=== PATIENT | female | born 1955 | race Caucasian/White ===

== ENCOUNTER 2022-03-23 16:33 | Outpatient (REF) | payer MEDICARE, SELFPAY ==
[2022-03-23 16:47] LABS: MANUAL DIFF FLAG NO
[2022-03-23 17:26] LABS: Basophils Percent Auto 0.3 % (0-2); Eosinophils Absolute Auto 0.2 X10*3/uL (0.0-0.4); Eosinophils Percent Auto 1.9 % (0-4); Hematocrit 42.1 % (37.0-47.0); Hemoglobin 13.8 g/dl (12.0-16.0); Imm Gran Abs Auto 0.06 X10*3/uL (0.00-0.03); Imm Gran Pct Auto 0.6 % (0.0-0.4); Lymphocytes Absolute Auto 2.9 X10*3/uL (1.2-4.9); Lymphocytes Percent Auto 26.6 % (20-40); Mean Corpuscular HGB Conc 32.8 g/dl (31.0-35.0); Mean Corpuscular Hemoglobin 31.1 pg (27.0-33.0); Mean Corpuscular Volume 94.8 fL (80.0-98.0); Mean Platelet Volume 10.6 fL (9.4-12.3); Monocytes Absolute Auto 0.8 X10*3/uL (0.1-1.2); Monocytes Percent Auto 7.6 % (2-11); Neutrophils Absolute Auto 6.8 x10*3/uL (2.0-8.3); Platelet Count 249 X10*3/uL (160-400); Red Blood Count 4.44 X10*6/uL (4.20-5.50); Red Cell Distribution Width 13.5 % (11.0-16.0); White Blood Count 10.8 X10*3/uL (4.8-10.8)
[2022-03-23 17:38] LABS: Anion Gap 16 (12-20); Blood Urea Nitrogen 18 mg/dL (9-16); Calcium 9.2 mg/dL (8.4-10.2); Carbon Dioxide 29 mmol/L (22-29); Chloride 98 mmol/L (96-108); Estimated Glomerular Filt Rate > 60; Glucose Random 297 mg/dL (60-115); Potassium 4.2 mmol/L (3.3-5.1); Sodium 139 mmol/L (135-145)
[2022-03-23 18:22] LABS: Phenytoin Dilantin 15.4 ug/mL (10.0-20.0)
== END 2022-03-23 16:34 | disposition home or self-care (01) ==
LOC: HO.LAB 16:33
PROVIDERS: PCP Internal Medicine; Visit Provider Psychiatry & Neurology Neurology
DX: R56.9 Unspecified convulsions (principal); Z79.899 Other long term (current) drug therapy
CPT/HCPCS: 36415; 80048; 80185; 85025

== ENCOUNTER 2023-04-14 12:11 | Outpatient (AMB) | payer MEDICARE, SELFPAY ==
--- NOTE | 2023-04-14 12:34 | A.OFFPC_ITS ---
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 She has a past medical history significant for diabetes type 2, seizure disorder, hypertension, hyperlipidemia, and osteoarthritis of the bilateral knees.. She has not seen a primary care provider in 5 years. She is due for mammogram, bone density scan, colonoscopy, podiatry, and Ophthalmology. She is declining OBGYN exam. Will order the appropriate referrals. At today's appointment the patient was found to be tachycardic at 111 beats per minute, EKG was performed which demonstrated new onset AFib, rapid. The patient denies having any chest pain, shortness of breath, arm pain, dizziness, nausea, epigastric pain, vomiting, or diarrhea. The patient will have cardiac ultrasoun d ordered, in addition to referral to Cardiology. She will be started on beta- orsmery for rate control, and Eliquis as her history of diabetes type 2, hyperlipidemia, age, and sex place her at a 8.5% chance of stroke within 1 year per based on the CHADS 2 score. Patient has also been instructed to take her blood pressure and blood glucose readings at home. She has been educated on the side effects of these medications. She has been educated when to present to the emergency room or when to return to the office. [facility] Family History (Updated 04/14/23 @ 12:45 by Ria Elizondo CMA) Brother Substance use disorder Mental health disorder Social History Housing: House Patient Tobacco Use Status: Never used Tobacco e-Cigarette/Vaping Use: Never Used service: No Current occupational status: retired Cognitive needs: No Hearing needs: No Vision needs: Yes Questionnaire PHQ-9 Over the last 2 weeks, how often have you been bothered by any of the following problems? 88294 - PHQ-9 Billing: Patient declined-do not bill Source: Developed by Drs. Ben Ha, Marilou Zamudio, Peterson Moss and colleagues, with an educational kate from [employer]. AUDIT C Alcohol Use Questionnaire (AUDIT-C) 1. How often do you have a drink containing alcohol?: Monthly or less 2. How many drinks containing alcohol do you have on a typical day when you are drinking?: 1 or 2 3. How often do you have six or more drinks on one occasion?: Never Total Score: 1 Review of Systems Const Details: Constitutional : No Weight loss, No Fever, No Chills, No Fatigue, No Malaise ENT/Mouth : No sore throat, No Rhinorrhea Eyes: No Eye Pain, No Swelling, No Redness Cardiovascular : No Chest Pain, No SOB, No Dyspnea on Exertion, No Orthopnea, No Edema, No Palpitations Respiratory : No Cough, No Sputum, No Wheezing Gastrointestinal : No Nausea, No Vomiting, No Diarrhea, No Constipation, No abdominal Pain, No Hematochezia, No Melena Genitourinary : No Dysuria, No Urinary Frequency, No Hematuria, Musculoskeletal : No joint pain, No Myalgias, No Joint Swelling Skin : No Skin Lesions, No rash Neuro : No Weakness, No Numbness, No Dizziness, No Headache Psych : No Anxiety/Panic, No Depression Heme/Lymph: No Bruising, No Bleeding,No Lymphadenopathy Endocrine : No Polyuria, No Polydipsia All other systems reviewed and are negative All systems reviewed & are unremarkable except as noted in HPI and below Physical exam (Primary Care) Vital Signs: Last Vital Signs Pulse 111 H 04/14/23 12:40 BP 110/80 04/14/23 12:40 Pulse Ox 96 04/14/23 12:40 Oxygen Delivery Method Room Air 04/14/23 12:40 Care Plan Goal for BP management: Patient had in office EKG. Blood pressure stable. BMI result Body Mass Index 55.5 BMI Assessment/Plan discussion: High Tobacco/Smoking Status: Tobacco use Status Tobacco use date assessed 04/14/23 04/14/23 12:36 Patient Tobacco Use Status Never used Tobacco 04/14/23 12:49 e-Cigarette/Vaping Use Never Used 04/14/23 12:49 Const General: cooperative and no acute distress Nutritional Appearance: obese Orientation/consciousness: patient oriented x3 Limitations: no limitations HENMT Head: Yes normal to inspection and Yes normocephalic Ears: TM's normal bilaterally Eyes General: appearance normal, both eyes and all related structures Sclerae: sclerae normal Corneas: corneas normal Pupils: Equal, round and reactive pupils present EOM: EOMs intact bilaterally Direct Ophthalmoscopy: normal light reflex and no photophobia Neck Neck: Yes normal visual inspection, Yes full ROM, Yes no lymphadenopathy and Yes trachea midline Lymphatic: no lymphadenopathy noted Resp Auscultation: clear to auscultation bilaterally Cardio Jugular venous distension: no JVD Rhythm: abnormal rhythm (AFib) GI Inspection: Yes normal to inspection Auscultation: normal bowel sounds General: Yes no CVA tenderness Back/Spine/Pelvis Back: no CVA tenderness Skin General skin exam: no rashes or lesions noted Neuro General: patient oriented x3 and CN's II-XI intact bilaterally Cranial nerves: Yes CN's II-XII intact bilaterally and Yes Equal, round and reactive pupils present Sensory Exam: Abnormal lower extremity sensory exam (Sensate to monofilament) Deep tendon reflexes (DTR's): Right patellar reflex intensity grade: 2+ and Left patellar reflex intensity grade: 2+ Romberg Test: Negative Extrem General: Yes normal to inspection Psych Affect: Sad affect present (Patient spent much of the appointment talking about childhood trauma.) Thought content: suicidality and no homicidality Office Procedures EKG [id number], Complete Results AMB Hemoglobin A1c AMB Hemoglobin A1c 7.3 % Last Edit by Ria Elizondo CMA on 04/14/23 14:38 Results Reviewed Results Reviewed: Laboratory Last Values Hgb A1c (Clinic) 7.3 % (4.0-6.0) H 04/14/23 14:37 Assessment and Plan Assessment & Plan (1) Encounter for routine adult physical exam with abnormal findings: Comment: Will order full panel of labs. Patient has opted for Cologuard. Will refer for bone density and mammogram. Patient is going to follow-up in 1 week. Code(s): Z00.01 - Encounter for general adult medical examination with abnormal findings (2) New onset a-fib: Comment: Patient has new onset AFib with no symptoms. Will order echocardiogram, and refer to Cardiology. Will start patient on metoprolol, and Eliquis. Patient has been educated on these medications and their side effects. Patient has been educated on signs of worsening symptoms and when to return to the office or when to present to the emergency room. Patient is instructed to take blood pressure measurements at home. Patient will have PT INR draw. Patient has been instructed not to take NSAIDs. Code(s): I48.91 - Unspecified atrial fibrillation Plan: Patient will follow-up in 1 week (3) Diabetes mellitus: Comment: Patient will be started on metformin to be taken as directed. Patient will be started on atorvastatin for hyperlipidemia. Patient will get referral to Ophthalmology and Podiatry. Patient's A1c in office today 7.3. Patient has been educated on proper diet, in foods to avoid. Patient instructed to take blood sugar measurements at home. Code(s): E11.9 - Type 2 diabetes mellitus without complications Qualifiers: Diabetes mellitus complication status: without complication Diabetes mellitus [facility] insulin use: without [facility] use Diabetes mellitus type: type 2 Qualified Code(s): E11.9 - Type 2 diabetes mellitus without complic ations Orders: Orders AMB EKG-In Office 04/14/23 R00.0 - Tachycardia, unspecified MM tomosynthesis screening BI 04/14/23 Z00.01 - Encounter for general adult medical examination with abnormal findings CA echo transthoracic complete 04/14/23 Z00.01 - Encounter for general adult medical examination with abnormal findings XR DEXA axial skeleton 04/14/23 Z00.01 - Encounter for general adult medical examination with abnormal findings Microalbumin 24 hr Urine 04/14/23 E11.9 - Type 2 diabetes mellitus without complications, Z00.01 - Encounter for general adult medical examination with abnormal findings Lipid Panel 04/14/23 E11.9 - Type 2 diabetes mellitus without complications, Z00.01 - Encounter for general adult medical examination with abnormal findings TSH reflex Free T4 04/14/23 E11.9 - Type 2 diabetes mellitus without complications, Z00.01 - Encounter for general adult medical examination with abnormal findings UA CC w/rflx Micro + Cult 04/14/23 E11.9 - Type 2 diabetes mellitus without complications, Z00.01 - Encounter for general adult medical examination with abnormal findings Comprehensive Met. Panel 04/14/23 E11.9 - Type 2 diabetes mellitus without complications, Z00.01 - Encounter for general adult medical examination with abnormal findings Complete Blood Count Auto Diff 12 E11.9 - Type 2 diabetes mellitus without complications, Z00.01 - Encounter for general adult medical examination with abnormal findings AMB Hemoglobin A1c 04/14/23 Z13.9 - Encounter for screening, unspecified Vitamin D 25-OH (D2 and D3) 12 E11.9 - Type 2 diabetes mellitus without complications, Z00.01 - Encounter for general adult medical examination with abnormal findings Prothrombin Time INR 04/14/23 E11.9 - Type 2 diabetes mellitus without complications, Z00.01 - Encounter for general adult medical examination with abnormal findings Referrals Cardiology Referral Z00.01 - Encounter for general adult medical examination with abnormal findings Ophthalmology Referral Z00.01 - Encounter for general adult medical examination with abnormal findings Cologuard Test E11.9 - Type 2 diabetes mellitus without complications, Z00.01 - Encounter for general adult medical examination with abnormal findings, Z12.11 - Encounter for screening for malignant neoplasm of colon, Z12.12 - Encounter for screening for malignant neoplasm of rectum Podiatry Referral Z00.01 - Encounter for general adult medical examination with abnormal findings Medications: New atorvastatin 20 mg PO DAILY 30 tabs 0RF metoprolol succinate ER 25 mg PO DAILY 30 tabs 0RF apixaban (Eliquis) 5 mg PO BID 60 tabs 0RF Coding Level of Care Code New Pt Level 4 (99967) Diagnoses Encounter for routine adult physical exam with abnormal findings Z00.01 New onset a-fib I48.91 Type 2 diabetes mellitus without complication, without long-term current use of insulin E11.9 Diabetes mellitus complication status: without complication Diabetes mellitus [facility] 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
[2023-04-14 12:40] VITALS: BP 110/80; PULSE 111; O2SAT 96; BMI 55.5
== END 2023-04-14 17:04 | disposition home or self-care (01) ==
PROVIDERS: PCP Internal Medicine; Visit Provider Nurse Practitioner Primary Care
DX: I48.91 Unspecified atrial fibrillation (principal); E11.9 Type 2 diabetes mellitus without complications; R00.0 Tachycardia, unspecified
CPT/HCPCS: 83036; 93000; 99204

== ENCOUNTER 2023-04-17 16:50 | Outpatient (REF) | payer MEDICARE, SELFPAY ==
[2023-04-17 17:02] LABS: MANUAL DIFF FLAG NO
[2023-04-17 17:31] LABS: INTERNATIONAL NORM RATIO 1.1 (0.9-1.1); Prothrombin Time 13.1 SEC (11.1-13.3)
[2023-04-17 17:38] LABS: Basophils Percent Auto 0.3 % (0-2); Eosinophils Absolute Auto 0.3 X10*3/uL (0.0-0.4); Eosinophils Percent Auto 2.2 % (0-4); Hematocrit 42.8 % (37.0-47.0); Hemoglobin 13.8 g/dl (12.0-16.0); Imm Gran Abs Auto 0.05 X10*3/uL (0.00-0.03); Imm Gran Pct Auto 0.4 % (0.0-0.4); Lymphocytes Absolute Auto 4.7 X10*3/uL (1.2-4.9); Lymphocytes Percent Auto 40.2 % (20-40); Mean Corpuscular HGB Conc 32.2 g/dl (31.0-35.0); Mean Corpuscular Hemoglobin 30.9 pg (27.0-33.0); Mean Platelet Volume 10.8 fL (9.4-12.3); Monocytes Absolute Auto 0.9 X10*3/uL (0.1-1.2); Monocytes Percent Auto 7.8 % (2-11); Neutrophils Absolute Auto 5.8 x10*3/uL (2.0-8.3); Neutrophils Percent Auto 49.1 % (45-73); Platelet Count 244 X10*3/uL (160-400); Red Blood Count 4.46 X10*6/uL (4.20-5.50); Red Cell Distribution Width 12.9 % (11.0-16.0); White Blood Count 11.7 X10*3/uL (4.8-10.8)
[2023-04-17 17:58] LABS: Alanine Aminotransferase 24 U/L (0-31); Albumin Level 4.3 g/dL (3.5-5.0); Alkaline Phosphatase 116 U/L (39-117); Anion Gap 15 (12-20); Aspartate Amino Transferase 16 U/L (5-31); Bilirubin Total 0.3 mg/dL (0.0-1.0); Blood Urea Nitrogen 14 mg/dL (9-16); Calcium 9.1 mg/dL (8.4-10.2); Carbon Dioxide 28 mmol/L (22-29); Chloride 103 mmol/L (96-108); Cholesterol 282 mg/dL (<200); Estimated Glomerular Filt Rate > 60; Glucose Random 165 mg/dL (60-115); HDL Cholesterol 43 mg/dL (>40); LDL Cholesterol Calculated 201 mg/dL (<100); Potassium 3.9 mmol/L (3.3-5.1); Sodium 142 mmol/L (135-145); Total Protein 7.8 g/dL (6.5-8.0); Triglycerides 192 mg/dL (<150)
[2023-04-17 18:07] LABS: TSH reflex Free T4 1.98 uIU/mL (0.32-4.0)
[2023-04-20 14:58] LABS: Vitamin D 25-OH, D2 <4 ng/mL; Vitamin D 25-OH, D3 25 ng/mL; Vitamin D 25-OH, Total 25 ng/mL (30-100)
== END 2023-04-17 16:51 | disposition home or self-care (01) ==
LOC: HO.LAB 16:50
PROVIDERS: PCP Nurse Practitioner Primary Care; Visit Provider Nurse Practitioner Primary Care
DX: Z00.01 Encounter for general adult medical examination with abnormal findings (principal); E11.9 Type 2 diabetes mellitus without complications
CPT/HCPCS: 36415; 80053; 80061; 82306; 84443; 85025; 85610

== ENCOUNTER 2023-04-20 13:28 | Outpatient (AMB) | payer MEDICARE, SELFPAY ==
--- NOTE | 2023-04-20 13:30 | MHC.PC.OV ---
Vital Signs 04/20/23 13:32 Height 5 ft Weight 281 lb BMI 54.9 BP 108/68 Blood Pressure Location Rt brachial Position Sitting Pulse 97 Pulse Source Pulse Oximeter Pulse Oximetry (%) 95 Oxygen Delivery Method Room Air Intake Visit Reasons: F/U Medications Intake Note: Patient here for medication follow up, she states she has been holding off on lisinopril as her bottom number is low and doesn't want it to go too low . Allergies No Known Allergies Allergy (Verified 04/20/23 13:32) Tobacco use date assessed: 04/14/23 HPI HPI Comments History of Present Illness Details Patient is a 67-year-old female in today for a follow-up visit regarding newly started medications. Patient was last seen in the office 6 days prior and was discovered to be in a new onset AFib with rapid ventricular rate. Patient was started on eliquis, metoprolol succinate, and atorvastatin. The patient has been taking her blood pressure readings at home which have been controlled, though she is concerned about a few readings where the diastolic pressure dipped below 60. She states that she has no symptoms of dizziness, chest pain, shortness a breath, nausea, vomiting, diarrhea. [facility] Medical History (Updated 04/20/23 @ 14:45 by SIXTO Lennon) Hypertension Depression Osteoarthritis Hyperlipidemia Diabetes mellitus Family History Brother Mental health disorder Substance use disorder Social History Housing: House Patient Tobacco Use Status: Never used Tobacco e-Cigarette/Vaping Use: Never Used service: No Current occupational status: retired Cognitive needs: No Hearing needs: No Vision needs: Yes Review of Systems Const Details: Constitutional : No Weight loss, No Fever, No Chills, No Fatigue, No Malaise ENT/Mouth : No sore throat, No Rhinorrhea Eyes: No Eye Pain, No Swelling, No Redness Cardiovascular : No Chest Pain, No SOB, No Dyspnea on Exertion, No Orthopnea, No Edema, No Palpitations Respiratory : No Cough, No Sputum, No Wheezing Gastrointestinal : No Nausea, No Vomiting, No Diarrhea, No Constipation, No abdominal Pain, No Hematochezia, No Melena Genitourinary : No Dysuria, No Urinary Frequency, No Hematuria, Musculoskeletal : No joint pain, No Myalgias, No Joint Swelling Skin : No Skin Lesions, No rash Neuro : No Weakness, No Numbness, No Dizziness, No Headache Psych : No SI/HI Heme/Lymph: No Bruising, No Bleeding,No Lymphadenopathy Endocrine : No Polyuria, No Polydipsia All other systems reviewed and are negative Physical exam (Primary Care) Vital Signs: Last Vital Signs Pulse 97 04/20/23 13:32 BP 108/68 04/20/23 13:32 Pulse Ox 95 04/20/23 13:32 Oxygen Delivery Method Room Air 04/20/23 13:32 Care Plan Goal for BP management: Patient's blood pressure reviewed stable. BMI result Body Mass Index 54.9 Tobacco/Smoking Status: Tobacco use Status Tobacco use date assessed 04/14/23 04/20/23 13:31 Patient Tobacco Use Status Never used Tobacco 04/20/23 13:31 e-Cigarette/Vaping Use Never Used 04/20/23 13:31 Const Other: Appearance: Alert.? Oriented X3.? No acute distress.? Head: Normocephalic, atraumatic, no step-offs or deformities Eyes: Pupils equal, round and reactive to light.? Neck: Normal inspection.? Neck supple.? CVS: Normal heart rate. Patient is in afib. Respiratory: No respiratory distress.? Breath sounds normal.? Extremities: No lower extremity edema.? No calf ttp. 5/5 strength to bilateral upper and lower extremities Neuro: Oriented X 3.? No motor deficit.? No sensory deficit. CN 2-12 intact General: cooperative and no acute distress Neuro General: deep tendon reflexes 2+ bilaterally Cranial nerves: Yes CN's II-XII intact bilaterally Cognition (Neuro): normal cognition Psych Thought content: Normal thought content present Insight: Good insight present (Psych) Judgement: Good judgement present (Psych) Office Procedures EKG [id number], Complete Results Reviewed Results Reviewed: Sodium 142 135-145 mmol/L Potassium 3.9 3.3-5.1 mmol/L CL 103 96-108 mmol/L CO2 28 22-29 mmol/L Gap 15 12-20 BUN 14 9-16 mg/dL Creat 0.84 0.5-1.4 mg/dL EGFR > 60 NOTE: For -Citizen Of [place] individuals, multiply the result by 1.210. Chronic Kidney Disease: Estimated GFR < 60 mL/min/1.73m2 Severe Kidney Disease: Estimated GFR < 15 mL/min/1.73m2 Glucose, Random 165 H 60-115 mg/dL CA 9.1 8.4-10.2 mg/dL Total Bili 0.3 0.0-1.0 mg/dL AST (GOT) 16 5-31 U/L ALT (GPT) 24 0-31 U/L Protein, Total 7.8 6.5-8.0 g/dL Alb 4.3 3.5-5.0 g/dL Triglyceride 192 H <150 mg/dL Desirable Triglyceride: less than 150 mg/dL Borderline High Triglyceride 150-199 mg/dL High Triglyceride: 200-499 mg/dL Very High Triglyceride: greater than or equal to 5OO mg/dL Cholesterol 282 H <200 mg/dL Desirable Cholesterol: less than 200 mg/dL Borderline High Cholesterol: 200-239 mg/dL High Cholesterol: greater than 239 mg/dL LDL Calculated 201 H <100 mg/dL Desirable LDL: less than 100 mg/dL Near Optimal/Above Optimal LDL: 110-129 mg/dL Borderline High LDL: 130-159 mg/dL High LDL: 160-189 mg/dL Very High LDL: greater than or equal to 190 mg/dL HDL 43 >40 mg/dL Desirable HDL: greater than 40 mg/dL Note: This HDL assay may give artificially low results in patients with liver disease. Alk Phos 116 39-117 U/L TSH 1.98 0.32-4.0 uIU/mL Assessment and Plan Assessment & Plan (1) Medication care plan discussed with primary care provider: Comment: The patient should continue to take the medication as prescribed. The in office EKG demonstrated that the patient is still in AFib however the rate is 89 beats per minute which is improved from 118 beats per minute. Patient has been instructed that she should start taking her metformin as prescribed. She has been educated to make her appointment with Cardiology and echocardiogram as soon as possible. She has been educated on signs of worsening symptoms and when to present back to the office or when to present to the ER. She will also continue to take blood pressure and blood sugar readings at home. Patient is agreeable to this plan. Code(s): Z71.89 - Other specified counseling Plan Will follow up in 3 months. Orders: Orders AMB EKG-In Office 04/20/23 I48.91 - Unspecified atrial fibrillation Coding Level of Care Code Est Pt Level 3 (01176) Diagnoses Medication care plan discussed with primary care provider Z71.89 CPT Codes EKG - CPT: 83845-[id number], Complete ([id number]) Time Spent (min) 30
[2023-04-20 13:32] VITALS: BP 108/68; PULSE 97; O2SAT 95; BMI 54.9
== END 2023-04-20 15:33 | disposition home or self-care (01) ==
PROVIDERS: PCP Internal Medicine; Visit Provider Nurse Practitioner Primary Care
DX: I48.91 Unspecified atrial fibrillation (principal)
CPT/HCPCS: 93000; 99213

== ENCOUNTER → 2023-06-12 14:26 | Outpatient (REF) | payer MEDICARE, SELFPAY ==
--- NOTE | 2023-06-12 14:33 | CA_ITS ---
Transthoracic Echocardiogram Patient (Last, First, Middle): Liset Chowdhury, Gender: Female Date of : 1955 Age: 67 Procedure Date: 06/12/2023 Procedure Type: Transthoracic Echocardiogram Location: OP Height: 152.4 cm Weight: 127.46 kg BSA: 2.16 m2 Heart Rate: bpm BP: 110 / 70 mmHg Sexologist: LUIS F Referring MD: Emanuel HENSON Symptoms: Z00.01 - Encounter for general adult medical examination with abnormal f... Study Quality: Fair, contrast ECG Rhythm: Sinus Conclusions: - The left ventricular systolic function is normal. The calculated ejection fraction is 56% by biplane method. - Even with contrast, difficult to assess wall motion. Possible distal anteroseptal akinesis. - There is mild to moderate aortic valve stenosis. - There is mild dilatation of the ascending aorta measuring 4.00 cm. Findings Procedure Information Contrast agent, definity, is being given per protocol without apparent complications. Left Ventricle Normal left ventricular cavity size. There is mildly increased left ventricular wall thickness. The left ventricular systolic function is normal. The calculated ejection fraction is 56% by biplane method. Diastolic function is indeterminate on the basis of available data. Even with contrast, difficult to assess wall motion. Possible distal anteroseptal akinesis. Right Ventricle Normal right ventricular cavity size. There is mildly decreased right ventricular systolic function. Atria The left atrium is moderately dilated. The right atrium is normal in size. Aortic Valve There is moderate calcification of the aortic valve. There is mild to moderate aortic valve stenosis. The peak aortic velocity is 1.90 m/s with a calculated peak gradient of 14 mmHg. The mean gradient is 9 mmHg. The aortic valve area is 1.20 cm2. Mitral Valve The mitral valve appears normal. There is trace mitral valve regurgitation. There is no mitral valve stenosis. Pulmonic Valve The pulmonic valve is likely normal. Tricuspid Valve There is trace tricuspid valve regurgitation. Tricuspid regurgitation envelope is inadequate for calculation of right ventricular systolic pressure. Great Vessels There is mild dilatation of the ascending aorta measuring 4.00 cm. Venous The inferior vena cava is mildly dilated and collapses greater than 50% with inspiration. Pericardium/Pleural There is no evidence of pericardial effusion. Prior Study Comparison No prior study available for comparison. Measurements 2D Linear Measurements IVSd: 1.36 0.6-0.9/0.6-1.0 cm LVIDd: 4.86 3.9-5.3/4.2-5.9 cm LVIDd Index: 2.25 2.4-3.2/2.2-3.1 cm/m2 LVIDs: 2.73 2.0-3.6 cm LVPWd: 1.17 0.7-1.1 cm LA Diam: 4.30 2.7-3.8/3.0-4.0 cm LAIDs Index: 1.99 1.5-2.3 cm/m2 LV Mass: 300.34 67-162/88-224 g LV Mass Index: 139.05 43-95/49-115 g/m2 LVOT Diam: 1.90 3.0+(-)1.3 cm 2D Systolic Function EF 4C: 56.40 >55% EF 2C: 53.00 >55% EF BiP: 56.20 >55% Mitral Valve MV Pk E: 0.86 MV Decel Time: 150.00 E'Lateral: 11.30 E'Medial: 5.27 E/E' Med: 16.30 E/E' Lat: 7.60 PHT: 44.00 MVA PHT: 5.00 Decel Giles: 5.85 Aortic Valve AoV Pk Levar: 1.90 AoV Mn Levar: 1.42 AoV VTI: 0.41 AoV Pk Grad: 14.00 Aov Mn Grad: 9.00 BALAJI Cont.VTI: 1.20 LVOT LVOT Pk Levar: 0.74 LVOT Mn Levar: 0.56 LVOT VTI: 0.18 LVOT Pk Grad: 2.00 LVOT Mn Grad: 1.00 LVOT Diam: 1.90 LVOT Area: 2.84 Diastolic Function MV Pk E: 0.86 E'Medial: 5.27 E/E' Med: 16.30 E' Laterial: 11.30 E/E' Lat: 7.60 Right Ventricle TAPSE (mm): 16.30 TVS' Levar: 8.40 Tricuspid Valve RA Press: 8.00 Great Vessels Aorta Sinus of Valsalva: 2.78 2.0-3.5 cm Ao Asc: 4.00 2.1-3.4 cm Updated in Other Vendor System with Status of Final Wander Blanchard MD electronically signed on 06/13/2023 8:16:49 AM with status of Final
== END ==
LOC: HO.CARD 14:26
PROVIDERS: PCP Nurse Practitioner Primary Care; Visit Provider Nurse Practitioner Primary Care
DX: I48.91 Unspecified atrial fibrillation (principal)
CPT/HCPCS: 93306; Q9957

== ENCOUNTER → 2023-06-12 14:33 | Outpatient (BNV) | payer MEDICARE, SELFPAY | PROVIDERS: PCP Nurse Practitioner Primary Care; Visit Provider Internal Medicine | DX: I35.0 Nonrheumatic aortic (valve) stenosis (principal) | CPT/HCPCS: 93306 ==

== ENCOUNTER 2023-07-21 14:53 | Outpatient (AMB) | payer MEDICARE, SELFPAY ==
[2023-07-21 14:59] VITALS: BP 132/70; PULSE 88; O2SAT 98; BMI 54.8
--- NOTE | 2023-07-21 14:59 | A.OFFPC_ITS ---
Vital Signs 07/21/23 14:59 Height 5 ft Weight 280 lb 6 oz BMI 54.8 BP 132/70 Blood Pressure Location Rt brachial Position Sitting Pulse 88 Pulse Source Pulse Oximeter Pulse Oximetry (%) 98 Oxygen Delivery Method Room Air Intake Visit Reasons: 3 month fu Intake Note: pt is here to follow up for her DM Allergies No Known Allergies Allergy (Verified 07/21/23 15:18) Medication List - Last Reconciled 07/21/23 by SIXTO Lennon apixaban (Eliquis) 5 mg PO BID atorvastatin 20 mg PO DAILY furosemide (Lasix) 20 mg PO DAILY lisinopril 10 mg PO DAILY metformin 500 mg PO DAILY metoprolol succinate ER 25 mg PO DAILY phenobarbital 64.8 mg PO BID PRN phenytoin sodium extended (Dilantin Kapseal) 100 mg PO BID psyllium husk (Metamucil) 1 tbsp PO DAILY zolpidem PO PRN Tobacco use date assessed: 07/21/23 Fall risk assessment: No Falls in past year Last assessed Fall Risk: 07/21/23 Dental Screening Dental Screen Date: 07/21/23 Did you have a dental visit in the last 12 months?: No Did you have a dental problem in the last 6 months where you did not have access to dental care?: No Was dental information given to patient?: No HPI HPI Comments History of Present Illness Details Patient is a 67-year-old female here for a diabetic follow-up. She has a past medical history significant for AFib, hypertension, hyperlipidemia, PTSD, epilepsy. Patient's up-to-date with eye exam. Patient has referral for podiatry needs to make appointment. Last A1c in office was 7.3, 2 day her in office A1c is 6.7. Patient will continue on current diabetic regimen with metformin improved diet. [facility] Medical History (Updated 07/21/23 @ 16:27 by SIXTO Lennon) Epilepsy Hypertension Depression Osteoarthritis Hyperlipidemia Diabetes mellitus Family History Brother Mental health disorder Substance use disorder Social History Housing: House Patient Tobacco Use Status: Never used Tobacco e-Cigarette/Vaping Use: Never Used service: No Current occupational status: retired Cognitive needs: No Hearing needs: No Vision needs: Yes Questionnaire PHQ-9 Over the last 2 weeks, how often have you been bothered by any of the following problems? 1. Little interest or pleasure in doing things: more than half the days 2. Feeling down, depressed, or hopeless: nearly every day 3. Trouble falling or staying asleep, or sleeping too much: more than half the days 4. Feeling tired or having little energy: more than half the days 5. Poor appetite or overeating: several days 6. Feeling bad about yourself - or that you are a failure or have let yourself or your family down: more than half the days 7. Trouble concentrating on things, such as reading the newspaper or watching television: not at all 8. Moving or speaking so slowly that other people could have noticed. Or the opposite - being so fidgety or restless that you have been moving around a lot more than usual: not at all 9. Thoughts that you would be better off or of hurting yourself in some way: not at all Total score: 12 Depression Screening Interpretation: Positive Depression Screening Done: Yes 52743 - PHQ-9 Billing: Yes (Patient has appointment upcoming with therapist.) Source: Developed by Drs. Ben Ha, Marilou Zamudio, Peterson Moss and colleagues, with an educational kate from [employer]. Thrive Questionnaire Date Thrive assessed: 07/21/23 I am a: Patient What is your living situation today?: I have a steady place to live Within the past 12 months, did the food you bought not last and you didn't have the money to get more?: Never true Within the past 12 months, did you worry whether your food would run out before you got money to buy more?: Never true Do you have trouble paying for medicines?: No Do you have trouble getting transportation to medical appointments?: No Do you have trouble paying your heating and electricity bill?: No Do you have trouble taking care of your child, family member or friend?: No Do you have trouble with day-to-day activities such as bathing, preparing meals, shopping, managing finances, etc.?: No Are you currently unemployed and looking for a job?: No Are you interested in more education?: Yes THRIVE Score: 0 AUDIT C Alcohol Use Questionnaire (AUDIT-C) 1. How often do you have a drink containing alcohol?: Monthly or less 2. How many drinks containing alcohol do you have on a typical day when you are drinking?: 1 or 2 3. How often do you have six or more drinks on one occasion?: Never Total Score: 1 BELEN-7 AMB Questionnaire BELEN-7 Date BELEN - 7 assessed: 07/21/23 Feeling nervous, anxious, or on edge: 2 = More than half the days Not being able to stop or control worryin = Nearly every day Worrying too much about different things: 2 = More than half the days Trouble relaxin = More than half the days Being so restless that it is hard to sit still: 0 = Not at all Becoming easily annoyed or irritable: 1 = Several days Feeling afraid as if something awful might happen: 2 = More than half the days Total BELEN-7 score (0-4 normal; 5-9 mild; 10-14 moderate; 15-21 severe): 12 Source: Developed by Drs. Ben Ha, Marilou Zamudio, Peterson Moss and colleagues, with an educational kate from [employer]. BELEN-7 Assessment Billing BELEN-7 Assessment Tool: BELEN-7 Assessment 59773 Review of Systems Const Details: Constitutional : No Weight loss, No Fever, No Chills, No Fatigue, No Malaise Eyes: No Eye Pain, No Swelling, No Redness, No vision change. Cardiovascular : No Chest Pain, No SOB, No Dyspnea on Exertion, No Orthopnea, No Edema, No Palpitations Respiratory : No Cough, No Sputum, No Wheezing Gastrointestinal : No Nausea, No Vomiting, No Diarrhea, No Constipation, No abdominal Pain, No Hematochezia, No Melena Genitourinary : No Dysuria, No Urinary Frequency, No Hematuria, Musculoskeletal : Admits bilateraly hand pain, metacarpel joints. Skin : No Skin Lesions, No rash Neuro : No Weakness, No Numbness, No Dizziness, No Headache Psych : No Anxiety/Panic, Admits some Depression, Denies SI/HI. Heme/Lymph: No Bruising, No Bleeding,No Lymphadenopathy Endocrine : No Polyuria, No Polydipsia All other systems reviewed and are negative Physical exam (Primary Care) Vital Signs: Last Vital Signs Pulse 88 07/21/23 14:59 BP 132/70 07/21/23 14:59 Pulse Ox 98 07/21/23 14:59 Oxygen Delivery Method Room Air 07/21/23 14:59 Care Plan Goal for BP management: Vital signs reviewed stable. BMI result Body Mass Index 54.8 Tobacco/Smoking Status: Tobacco use Status Tobacco use date assessed 07/21/23 07/21/23 15:06 Patient Tobacco Use Status Never used Tobacco 07/21/23 14:59 e-Cigarette/Vaping Use Never Used 07/21/23 14:59 PHQ-9: PHQ-9 Score PHQ-9: Total score 12 07/21/23 16:32 Depression Screening Interpretation: Positive Thrive Assessment: Date of Thrive Assessment Date Thrive assessed 07/21/23 07/21/23 16:32 Const Other: Appearance: Alert.? Oriented X3.? No acute distress.? Head: Normocephalic, atraumatic. Eyes: Pupils equal, round and reactive to light.? Neck: Normal inspection.? Neck supple.? CVS: Normal heart rate, + AFIB.? Pulses normal.? Respiratory: No respiratory distress.? Breath sounds normal.? Skin: Skin warm and dry.? Normal skin color.? Normal skin turgor.? Extremities: No lower extremity edema. Tenderness to Metacarpels bilateral hands. Neuro: Oriented X 3.? No motor deficit.? No sensory deficit. CN 2-12 intact Results AMB Hemoglobin A1c AMB Hemoglobin A1c 6.7 % Last Edit by Keyla Swan CMA on 07/21/23 15: 18 Results Reviewed Results Reviewed: Laboratory Last Values Hgb A1c (Clinic) 6.7 % (4.0-6.0) H 07/21/23 15:14 Assessment and Plan Assessment & Plan (1) Diabetes mellitus: Comment: Patient's A1c is 6.7 down from 7.3. She will continue on her current medication regimen. Will continue to eat modify diet. Code(s): E11.9 - Type 2 diabetes mellitus without complications Qualifiers: Diabetes mellitus type: type 2 Diabetes mellitus technician terminal and repeater insulin use: without technician terminal and repeater use Diabetes mellitus complication status: without complication Qualified Code(s): E11.9 - Type 2 diabetes mellitus without complications Plan: Patient will follow-up in 3 months. (2) Depression: Comment: Patient will speak with community navigator for psychiatric care. Patient denies SI/HI. Patient will also start taking vitamin D3 supplements. Code(s): F32.A - Depression, unspecified Qualifiers: Depression Type: unspecified Qualified Code(s): F32.A - Depression, unspecified Plan: Establish care with psychiatrist. (3) Osteoarthritis: Comment: Patient explained that she needs to avoid NSAID use due to Eliquis. Patient can utilize Tylenol for arthritis pain. Can also utilize lidocaine cream. Code(s): M19.90 - Unspecified osteoarthritis, unspecified site Qualifiers: Osteoarthritis location: hand Osteoarthritis type: primary Laterality: bilateral Qualified Code(s): M19.041 - Primary osteoarthritis, right hand; M19.042 - Primary osteoarthritis, left hand Orders: Orders AMB Hemoglobin A1c Today E11.9 - Type 2 diabetes mellitus without complications Lipid Panel Today E11.9 - Type 2 diabetes mellitus without complications Coding Level of Care Code Est Pt Level 4 (00609) Diagnoses Type 2 diabetes mellitus without complication, without long-term current use of insulin E11.9 Diabetes mellitus type: type 2 Diabetes mellitus fci insulin use: without technician terminal and repeater use Diabetes mellitus complication status: without complication Depression, unspecified depression type F32.A Depression Type: unspecified Primary osteoarthritis of both hands M19.041; M19.042 Osteoarthritis location: hand Osteoarthritis type: primary Laterality: bilateral Additional Codes BELEN-7 Assessment Billing - BELEN-7 Assessment Tool: BELEN-7 Assessment 84782 ([id number]) Time Spent (min) 45
== END 2023-07-21 16:09 | disposition home or self-care (01) ==
PROVIDERS: PCP Nurse Practitioner Primary Care; Visit Provider Nurse Practitioner Primary Care
DX: E11.9 Type 2 diabetes mellitus without complications (principal)
CPT/HCPCS: 83036; 96127; 99214

== ENCOUNTER 2023-08-30 13:27 | Outpatient (AMB) | payer MEDICARE, SELFPAY ==
--- NOTE | 2023-08-30 13:51 | MHC.OFFVIS ---
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 findings Intake Note: New patient dx afib with ekg Advertising Teacher Required: No Allergies No Known Allergies Allergy (Verified 07/21/23 15:18) Medication List - Last Reconciled 08/30/23 by Wander Blanchard MD apixaban (Eliquis) 5 mg PO BID atorvastatin 20 mg PO DAILY furosemide (Lasix) 20 mg PO DAILY lisinopril 5 mg PO DAILY metformin 500 mg PO DAILY metoprolol succinate ER 25 mg PO DAILY phenobarbital 64.8 mg PO BID phenytoin sodium extended (Dilantin Kapseal) 100 mg PO BID psyllium husk (Metamucil) 1 tbsp PO DAILY zolpidem PO PRN HPI Comments Details: Liset is here for evaluation of atrial fibrillation. She states that she suffers from depression and has not been on meds for quite some time. She is very upset and is crying in the clinic. Denies any clear-cut symptoms like angina or shortness of breath. Few months back, it seems that she was diagnosed with atrial fibrillation. Has been put on beta-blockers. Also on Eliquis. No clear symptoms from this and only rare palpitations. She is morbidly obese. Denies any history of obstructive sleep apnea. [facility] Medical History (Updated 08/30/23 @ 14:29 by Wander Blanchard MD) Epilepsy Hypertension Depression Osteoarthritis Hyperlipidemia Diabetes mellitus Family History Brother Mental health disorder Substance use disorder Social History Housing: House Patient Tobacco Use Status: Never used Tobacco e-Cigarette/Vaping Use: Never Used service: No Current occupational status: retired Cognitive needs: No Hearing needs: No Vision needs: Yes Review of Systems Const Denies chills, Denies daytime sleepiness, Denies fatigue, Denies fever(s), Denies frequent falls, Denies poor appetite, Denies snoring, Denies stops breathing during sleep, Denies weakness, Denies weight gain and Denies weight loss Eyes Denies loss of vision ENT Denies dizziness and Denies hearing loss Card Denies chest pain, Denies claudication, Denies leg edema, Denies lightheadedness, Denies palpitations, Denies dyspnea, Denies dyspnea on exertion and Denies orthopnea Resp Denies cough, Denies excessive phlegm production, Denies dyspnea, Denies dyspnea on exertion, Denies snoring and Denies wheezing GI Denies abdominal pain, Denies hematochezia, Denies change in bowel habits, Denies nausea and Denies vomiting Denies urinary frequency and Denies dysuria Musc Denies arthralgias, Denies muscle weakness, Denies numbness and Denies other (frequent falls) Skin/Breast Denies nail changes and Denies rash Neuro Denies Abnormal speech present, Denies dizziness, Denies frequent falls, Denies loss of vision, Denies memory loss, Denies numbness and Denies weakness Psych Denies depression and Denies memory loss Endo Denies fatigue and Denies palpitations Sachin/Lymph Reports easy bruising and Reports other (anemia) Aller/Immun Denies wheezing Physical Exam Vital Signs: Last Vital Signs Pulse 152 H 08/30/23 13:52 BP 120/78 08/30/23 13:52 Const General: comfortable and no acute distress Orientation/consciousness: patient oriented x3 HEENT Other: Unremarkable Head: Yes normal to inspection Neck Neck: Yes normal visual inspection Chest Chest palpation & inspection: normal inspection of the chest Resp Auscultation: clear to auscultation bilaterally Cardio Palpation: normal PMI Heart sounds: S1 normal heart sound present, S2 normal heart sound present, no gallops, no murmurs and no rubs GI Palpation (GI): Soft to palpation Back/Spine/Pelvis Other: unremarkable Skin General skin exam: no rashes or lesions noted Neuro General: patient oriented x3 Speech: No Abnormal speech present Extrem General: Yes normal to inspection Psych Mental Status: mental status grossly normal Office Procedures EKG Details: EKG with atrial fibrillation or possibly flutter with a ventricular rate of 152/Min. [id number], Complete Assessment & Plan Assessment & Plan (1) Atrial fibrillation with rapid ventricular response: Code(s): I48.91 - Unspecified atrial fibrillation Category: Medical Plan: EKG as above with atrial fibrillation and rapid ventricular rate. We discussed about going to the ER but she is quite reluctant. She feels that she is very upset and is tearful and that is what is driving the heart rate up. She states that several heart rates in other office visits have been well within normal range. I am not clear if sending her to the ER when she is tearful and emotionally upset will make things worse rather. Hence we will try to go up on the beta-rosmery dosing. Increase metoprolol ER to 50 mg daily. Advised her to go home and rest and take an extra metoprolol 25 mg tablet. Stop the lisinopril to avoid any hypotension. Continue Eliquis. 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 If persistently high in spite of increasing beta-blockers, may need to go to the ER. Obtain Holter. After the rate is stabilized, we can get an echocardiogram. Possibly home sleep study as well based on body habitus but not clear if she will be able to pursue due to psychiatric issues. Orders: Orders CA echo transthoracic complete Today I48.91 - Unspecified atrial fibrillation ECG 3 day holter monitor Today I48.91 - Unspecified atrial fibrillation, R00.2 - Palpitations Medications: New metoprolol succinate ER (Toprol XL) 50 mg PO DAILY 90 tabs 1RF Discontinued metoprolol succinate ER Discontinued Reason: Doctor's Order 25 mg PO DAILY 90 tabs 1RF Coding Level of Care Code New Pt Level 4 (18200) Diagnoses Atrial fibrillation with rapid ventricular response I48.91 CPT Codes EKG - CPT: 96957-[id number], Complete ([id number])
[2023-08-30 13:52] VITALS: BP 120/78; PULSE 152
== END 2023-08-30 14:44 | disposition home or self-care (01) ==
PROVIDERS: PCP Nurse Practitioner Primary Care; Visit Provider Internal Medicine
DX: I48.91 Unspecified atrial fibrillation (principal)
CPT/HCPCS: 93010; 99214

== ENCOUNTER → 2023-08-30 13:27 | Outpatient (BNVA) | payer MEDICARE, SELFPAY | PROVIDERS: PCP Nurse Practitioner Primary Care; Visit Provider Internal Medicine | DX: I48.91 Unspecified atrial fibrillation (principal); E66.01 Morbid (severe) obesity due to excess calories; R00.2 Palpitations | CPT/HCPCS: 93005; 99212 ==

== ENCOUNTER → 2023-08-31 13:01 | Outpatient (REF) | payer MEDICARE, SELFPAY ==
--- NOTE | 2023-08-31 13:19 | HM_ITS ---
Conclusion: 1. Patient was monitored for total period of 3 days 2. Baseline was atrial fibrillation with average heart of 93 beats per minute with borderline rate control 3. No significant pauses noted 4. No patient reported events MTDD
== END ==
LOC: HO.CARD 13:01
PROVIDERS: Visit Provider Internal Medicine
DX: R00.2 Palpitations (principal); I48.91 Unspecified atrial fibrillation
CPT/HCPCS: 93242

== ENCOUNTER → 2023-08-31 13:19 | Outpatient (BNV) | payer MEDICARE, SELFPAY | PROVIDERS: Visit Provider Internal Medicine Cardiovascular Disease | DX: I48.91 Unspecified atrial fibrillation (principal) | CPT/HCPCS: 93244 ==

== ENCOUNTER 2023-09-07 13:27 | Outpatient (AMB) | payer MEDICARE, SELFPAY ==
[2023-09-07 13:28] VITALS: BP 112/62; PULSE 107; O2SAT 95
--- NOTE | 2023-09-07 13:28 | A.OFFVIS_ITS ---
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 Recently seen regarding atrial fibrillation. She also has depression and apparently has not been on meds for some time. Last time, she was very upset and constantly crying. Today, she has a bit more composed but still not normal. She seems like she is on the verge of breaking down again. From the cardiac, no specific symptoms. She has been put on beta- blockers. Tolerating that well. Morbidly obese. She denies any history of obstructive sleep apnea. [facility] Medical History (Updated 08/30/23 @ 14:29 by Wander Blanchard MD) Epilepsy Hypertension Depression Osteoarthritis Hyperlipidemia Diabetes mellitus Family History Brother Mental health disorder Substance use disorder Social History Housing: House Patient Tobacco Use Status: Never used Tobacco e-Cigarette/Vaping Use: Never Used service: No Current occupational status: retired Cognitive needs: No Hearing needs: No Vision needs: Yes Review of Systems Const Denies chills, Denies fatigue, Denies fever(s), Denies frequent falls, Denies weakness, Denies weight gain and Denies weight loss ENT Denies dizziness Card Denies chest pain, Denies leg edema, Denies lightheadedness, Denies palpitations, Denies dyspnea and Denies dyspnea on exertion Resp Denies cough, Denies dyspnea and Denies dyspnea on exertion GI Denies hematochezia Musc Denies abnormal gait, Denies muscle weakness, Denies numbness, Denies radiating pain into limb and Denies tingling Neuro Denies abnormal gait, Denies dizziness, Denies frequent falls, Denies numbness, Denies tingling and Denies weakness Endo Denies fatigue and Denies palpitations Physical Exam Vital Signs: Last Vital Signs Pulse 107 H 09/07/23 13:28 BP 112/62 09/07/23 13:28 Pulse Ox 95 09/07/23 13:28 Const General: comfortable and no acute distress Orientation/consciousness: patient oriented x3 HEENT Other: Unremarkable Head: Yes normal to inspection Neck Neck: Yes normal visual inspection Chest Chest palpation & inspection: normal inspection of the chest Resp Auscultation: clear to auscultation bilaterally Cardio Palpation: normal PMI Heart sounds: S1 normal heart sound present, S2 normal heart sound present, no gallops, no murmurs and no rubs GI Palpation (GI): Soft to palpation Back/Spine/Pelvis Other: unremarkable Skin General skin exam: no rashes or lesions noted Neuro General: patient oriented x3 Extrem General: Yes normal to inspection Psych Mental Status: mental status grossly normal Assessment & Plan Assessment & Plan (1) Atrial fibrillation with rapid ventricular response: Code(s): I48.91 - Unspecified atrial fibrillation Category: Medical Plan: EKG in the recent visit with atrial fibrillation and rapid rate. In the Holter monitor, underlying rhythm is atrial fibrillation with average rate of 93/Min with borderline rate control. Findings discussed with patient. She is already on Toprol-XL 50 mg daily. Add digoxin 125 mcg daily. Continue anticoagulation. Considering her psychiatric issues, she has not really a good candidate for cardioversion or rhythm control. I am not clear if she will be able to go through it at all. She is already tearful even just in the clinic. She may have sleep apnea but she is denying any history. Also even if she has the problem, unlikely that she will be able to do CPAP. Recent echocardiogram with LVEF of 56%. Question of distal anteroseptal akinesis. [id number] aortic stenosis. Mild ascending aortic dilatation. Eventually, it ischemic workup with a stress test if she is able to go through. Currently, no angina. Follow-up in a few weeks' time. Tried to reassure her as much. Total time spent including review of data, counseling, documentation, coordination of care-32 minutes. Coding Level of Care Code Est Pt Level 4 (78916) Diagnoses Atrial fibrillation with rapid ventricular response I48.91
== END 2023-09-07 14:01 | disposition home or self-care (01) ==
PROVIDERS: PCP Nurse Practitioner Primary Care; Visit Provider Internal Medicine
DX: I48.91 Unspecified atrial fibrillation (principal)
CPT/HCPCS: 99214

== ENCOUNTER → 2023-09-07 13:27 | Outpatient (BNVA) | payer MEDICARE, SELFPAY | PROVIDERS: PCP Nurse Practitioner Primary Care; Visit Provider Internal Medicine | DX: I48.91 Unspecified atrial fibrillation (principal) | CPT/HCPCS: 99212 ==

== ENCOUNTER 2024-09-04 12:22 | Outpatient (AMB) | payer MEDICARE, SELFPAY ==
--- NOTE | 2024-09-04 12:31 | MHC.OFFVIS ---
Vital Signs 09/04/24 12:32 Height 5 ft BMI Reason not done Patient refused/unable BP 128/70 Blood Pressure Location Lt brachial Position Sitting Pulse 89 Pulse Source Monitor Intake Visit Reasons: 1 yr follow up Allergies No Known Allergies Allergy (Verified 07/21/23 15:18) Medication List - Last Reconciled 09/04/24 by Wander Blanchard MD apixaban (Eliquis) 5 mg PO BID digoxin 125 mcg PO DAILY furosemide (Lasix) 20 mg PO DAILY metformin 500 mg PO DAILY metoprolol succinate ER (Toprol XL) 50 mg PO DAILY phenobarbital 64.8 mg PO BID phenytoin sodium extended (Dilantin Kapseal) 100 mg PO BID psyllium husk (Metamucil) 1 tbsp PO DAILY zolpidem PO PRN HPI Comments Details: Liset returns for follow-up regarding atrial fibrillation. She also has a history of significant depression. In the previous visits, she has been extremely tearful and consult crying but today, seems fairly composed. She states she feels fine and does not have any cardiac symptoms like angina or shortness of breath or in fact anything cardiac sounding. In the past, she had mentioned words like 'on the verge of breaking down' extra but today seems okay. She is on beta-blockers, digoxin, Eliquis. No medication concerns. Morbidly obese. She denies any history of obstructive sleep apnea. [facility] Medical History (Updated 09/04/24 @ 12:49 by Wander Blanchard MD) Epilepsy Hypertension Depression Osteoarthritis Hyperlipidemia Diabetes mellitus Family History Brother Mental health disorder Substance use disorder Social History Housing: House Patient Tobacco Use Status: Never used Tobacco e-Cigarette/Vaping Use: Never Used service: No Current occupational status: retired Cognitive needs: No Hearing needs: No Vision needs: Yes Review of Systems Const Reports body aches and Denies weakness ENT Denies dizziness Card Denies chest pain, Denies chest pain with activity, Denies syncope, Denies rapid heart rate, Denies pedal edema, Denies edema, Denies leg edema, Denies lightheadedness, Denies palpitations, Denies dyspnea, Denies dyspnea on exertion and Denies orthopnea Resp Denies cough, Denies dyspnea and Denies dyspnea on exertion GI Denies hematochezia and Denies change in stool character Musc Denies abnormal gait, Denies muscle cramps, Denies muscle weakness, Denies numbness, Denies radiating pain into limb and Denies tingling Neuro Denies abnormal gait, Denies dizziness, Denies syncope, Denies numbness, Denies tingling and Denies weakness Endo Denies palpitations Physical Exam Vital Signs: Last Vital Signs Pulse 89 09/04/24 12:32 BP 128/70 09/04/24 12:32 Const General: comfortable and no acute distress Orientation/consciousness: patient oriented x3 HEENT Other: Unremarkable Head: Yes normal to inspection Neck Neck: Yes normal visual inspection Chest Chest palpation & inspection: normal inspection of the chest Resp Auscultation: clear to auscultation bilaterally Cardio Palpation: normal PMI Heart sounds: S1 normal heart sound present, S2 normal heart sound present, no gallops, no murmurs and no rubs GI Palpation (GI): Soft to palpation Back/Spine/Pelvis Other: unremarkable Skin General skin exam: no rashes or lesions noted Neuro General: patient oriented x3 Extrem General: Yes normal to inspection Psych Mental Status: mental status grossly normal Office Procedures EKG Details: EKG with atrial fibrillation at a rate of 89/Min; nonspecific ST-T changes. 88757-Nvjcffhwrzmypzdts, Complete Assessment & Plan Assessment & Plan (1) Persistent atrial fibrillation: Code(s): I48.19 - Other persistent atrial fibrillation Category: Medical (2) Depression: Code(s): F32.A - Depression, unspecified Category: Medical Qualifiers: Depression Type: unspecified Qualified Code(s): F32.A - Depression, unspecified Plan With regard to the atrial fibrillation, rate controlled based on the EKG. Continue metoprolol, digoxin, Eliquis. No changes. Strongly advised her to do labs as she has not had them in a while. Specifically requested digoxin levels. Advised how to do that. She is not a candidate for cardioversion or rhythm control or anything aggressive because of depression. In the echocardiogram, there was preserved LVEF. Question of distal anterolateral wall motion abnormality but upon review of the images, could also be just artifactual. She really not a good candidate for stress testing or ischemia workup because of depression and coping skills. In the echocardiogram, there was also concern for oxks-gw-hztzhaek aortic stenosis but on clinical exam, no clear findings. Her mean gradient is only 9 mm Hg. Calculated valve area on the echocardiogram was 1.2 sqcm but again may be an overestimate. No specific implications at this time. We will follow up in 3 months. Hopefully, she completes the labs. Reassured her as much. Strongly advised her to keep follow-up appointments and not miss them as she frequently cancels these. Discussion Notes During our discussion, I highlighted monitoring digoxin levels through blood work, which should be completed before the next medication dose to ensure it remains therapeutic. The risks and benefits associated with maintaining controlled atrial fibrillation were deliberated, emphasizing the importance of correct medication scheduling. The patient's attempt to expedite her prescriptions for both digoxin and metoprolol concurrently was noted, as they aim for manageable heart rate control. We reviewed consistency with her other treatments, demonstrating comprehension of her current health status. Our next evaluation will be in three to four months to reassess and discuss any advanced treatment strategies needed. Patient was informed and verbally consented to the use of an ambient scribe for clinic note documentation during this visit. Orders: Orders Basic Metabolic Panel Today I48.19 - Other persistent atrial fibrillation Complete Blood Count no Diff Today I48.19 - Other persistent atrial fibrillation Digoxin Today I48.19 - Other persistent atrial fibrillation Medications: Changed From metoprolol succinate ER (Toprol XL) Must keep appointment for future refills. 50 mg PO DAILY 30 tabs 0RF I48.19 - Other persistent atrial fibrillation To metoprolol succinate ER (Toprol XL) 50 mg PO DAILY 90 tabs 3RF I48.19 - Other persistent atrial fibrillation Refilled digoxin Must keep appointment for future refills. 125 mcg PO DAILY 90 tabs 3RF I48.19 - Other persistent atrial fibrillation Patient Instructions: - Get bloodwork done early in the morning before taking Digoxin. - supervisor molding your digoxin and metoprolol prescriptions from the pharmacy as soon as possible. - Take your medications at the scheduled times, keeping the necessary gap between doses. - Return for follow-ups in 3-4 months for evaluation. - If you have any new symptoms like chest pain or unusual fatigue, seek medical attention immediately. Coding Level of Care Code Est Pt Level 4 (31632) Complex EM visit Add On G2211 Diagnoses Persistent atrial fibrillation I48.19 Depression, unspecified depression type F32.A Depression Type: unspecified CPT Codes EKG - CPT: 04607-Umgajybbrbwsdlxtg, Complete ([id number])
[2024-09-04 12:32] VITALS: BP 128/70; PULSE 89
--- OUTSIDE RECORDS SUMMARY | 2024-09-04 13:43 | XMS_ITS ---
Author Organization [facility] Address [address] [place] [address] Care Team Providers Care Sales Representative Rural Power Name Role Phone Carolee, Leon Unavailable [phone] REASON FOR VISIT cx appt 01/30/24 Encounters Encounter Location Date Provider Diagnosis [facility] [address] [place] [address] 01/19/2024 Leon Zarco Plan Of Treatment No Information Progress Notes * Liset CHOWDHURY MDOB:1955 (68 yo F)Acc No.[id number]:01/19/2024 Patient:?Liset Chowdhury :1955???Age:68 Y???Sex:Female [address] [address] * true * Date:? Generated for Suze anne/Alvino/eTransmitting on:?09/04/2024 01:43 PM EDT
--- OUTSIDE RECORDS SUMMARY | 2024-09-04 13:43 | XMS_ITS ---
Author Organization [facility] Address [address] [place] [address] Care Team Providers Care Form Stripper Name Role Phone Leon Zarco Unavailable [phone] Encounters Encounter Location Date Provider Diagnosis [facility] [address] [place] [address] 10/03/2023 Leon Zarco Plan Of Treatment No Information Progress Notes * TRENTON Liset MDOB:1955 (68 yo F)Acc No.[id number]:10/03/2023 Progress Notes Patient:?Liset CHOWDHURY Provider:?Leon Zarco DPM :1955???Age:68 Y???Sex:Female D ate:10/03/2023 Address:[address], [place] Subjective: * Chief Complaints: * ??? * Medical History:? Objective: * Vitals:? Assessment: Plan: * Treatment: * Images: * The named appointment provid er may or may not be the originator of this progress note, and it is not deemed complete until electronically signed by the appointment provider. Sign off status: Pending * Provider:?Leon Zarco DPM Date:?2023 Generated for Suze anne/Alvino/Dorianitting on:?09/04/2024 01:43 PM EDT
--- OUTSIDE RECORDS SUMMARY | 2024-09-04 13:43 | XMS_ITS | Patient Health Record ---
Author Organization [facility] Address [address] [place] [address] Care Team Providers Care Speed Belt Sander Name Role Phone Leon Zarco Unavailable [phone] Reason For Referral No Information Encounters Encounter Location Date Provider Diagnosis [facility] [address] [place] [address] 09/27/2023 Leon Zarco [facility] [address] [place] [address] 01/19/2024 Leon Zarco Plan Of Treatment No Information Insurance Providers Payer Name Payer Address Payer Phone Subscriber Number Group Number Insured Name Patient Relationship to Insured Coverage Start Date Coverage End Date [facility] [id number] [address] [address] [place] [address] [id number] Liset Chowdhury Self - patient is the insured
--- OUTSIDE RECORDS SUMMARY | 2024-09-04 13:43 | XMS_ITS ---
Author Organization [facility] Address [address] [place] [address] Care Team Providers Care Rougher Operator Name Role Phone Leon Zarco Unavailable [phone] Encounters Encounter Location Date Provider Diagnosis [facility] [address] [place] [address] 01/30/2024 Leon Zarco Plan Of Treatment No Information Progress Notes * TRENTON Liset MDOB:1955 (68 yo F)Acc No.[id number]:01/30/2024 Progress Notes Patient:?Liset CHOWDHURY Provider:?Leon Zarco DPM :1955???Age:68 Y???Sex:Female D ate:01/30/2024 Address:[address], [place] Subjective: * Chief Complaints: * ??? * [...]
== END 2024-09-04 12:56 | disposition home or self-care (01) ==
PROVIDERS: PCP Nurse Practitioner Primary Care; Visit Provider Internal Medicine
DX: I48.19 Other persistent atrial fibrillation (principal); F32.A Depression, unspecified
CPT/HCPCS: 93010; 99214; G2211

== ENCOUNTER → 2024-09-04 12:22 | Outpatient (BNVA) | payer MEDICARE, SELFPAY | PROVIDERS: Visit Provider Internal Medicine | DX: I48.19 Other persistent atrial fibrillation (principal); F32.A Depression, unspecified | CPT/HCPCS: 93005; 99212 ==

== ENCOUNTER 2024-09-11 13:48 | Outpatient (AMB) | payer MEDICARE, SELFPAY ==
[2024-09-11 13:51] VITALS: BP 126/74; PULSE 86; O2SAT 97; BMI 50.4
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
--- OUTSIDE RECORDS SUMMARY | 2024-09-11 15:09 | XMS_ITS ---
Author Organization [facility] Address [address] [place] [address] Care Team Providers Care Administrative Processor Name Role Phone Leon Zarco Unavailable [phone] Encounters Encounter Location Date Provider Diagnosis [facility] [address] [place] [address] 01/30/2024 Leon Zarco Plan Of Treatment No Information Progress Notes * TRENTON Liset MDOB:1955 (69 yo F)Acc No.[id number]:01/30/2024 Progress Notes Patient:?Liset CHOWDHURY Provider:?Leon Zarco DPM :1955???Age:68 Y???Sex:Female D ate:01/30/2024 Address:[address], [place] Subjective: * Chief Complaints: * ??? * Medical History:? Objective: * Vitals:? Assessment: Plan: * Treatment: * Images: * The named appointment provid er may or may not be the originator of this progress note, and it is not deemed complete until electronically signed by the appointment provider. Sign off status: Pending * Provider:?Leon Zarco DPM Date:?2023 Generated for Suze anne/Alvino/Dorianitting on:?09/11/2024 03:09 PM EDT
--- OUTSIDE RECORDS SUMMARY | 2024-09-11 15:09 | XMS_ITS ---
[facility] Organization [facility] Address [address] [place] [address] Care Team Providers Care Customer Solutions Coordinator Name Role Phone Leon Zarco Unavailable [phone] Encounters Encounter Location Date Provider Diagnosis [facility] [address] [place] [address] 10/03/2023 Leon Zarco Plan Of Treatment No Information Progress Notes * TRENTON Liset MDOB:1955 (69 yo F)Acc No.[id number]:10/03/2023 Progress Notes Patient:?Liset CHOWDHURY Provider:?Leon Zarco DPM :1955???Age:68 Y???Sex:Female D ate:10/03/2023 Address:[address], [place] Subjective: * Chief Complaints: * ??? * Medical History:? Objective: * Vitals:? Assessment: Plan: * Treatment: * Images: * The named appointment provid er may or may not be the originator of this progress note, and it is not deemed complete until electronically signed by the appointment provider. Sign off status: Pending * Provider:?Leon Zarco DPM Date:?2023 Generated for Suze anne/Alvino/Dorianitting on:?09/11/2024 03:08 PM EDT
--- OUTSIDE RECORDS SUMMARY | 2024-09-11 15:09 | XMS_ITS | Patient Health Record ---
Author Organization [facility] Address [address] [place] [address] Care Team Providers Care Adjunct Political Science Instructor Name Role Phone Leon Zarco Unavailable [phone] Reason For Referral No Information Encounters Encounter Location Date Provider Diagnosis [facility] [address] [place] [address] 09/27/2023 Leon Zarco [facility] [address] [place] [address] 01/19/2024 Leon Zarco Plan Of Treatment No Information Insurance Providers Payer Name Payer Address Payer Phone Subscriber Number Group Number Insured Name Patient Relationship to Insured Coverage Start Date Coverage End Date [facility] [id number] [address] [address] [place] [address] [id number] Liset Chowdhury Self - patient is the insured
--- OUTSIDE RECORDS SUMMARY | 2024-09-11 15:09 | XMS_ITS ---
Author Organization [facility] Address [address] [place] [address] Care Team Providers Care Leak Detection Engineer Name Role Phone Carolee, Leon Unavailable [phone] REASON FOR VISIT cx appt 01/30/24 Encounters Encounter Location Date Provider Diagnosis [facility] [address] [place] [address] 01/19/2024 Leon Zarco Plan Of Treatment No Information Progress Notes * Liset CHOWDHURY MDOB:1955 (68 yo F)Acc No.[id number]:01/19/2024 Patient:?Liset Chowdhury :1955???Age:68 Y???Sex:Female [address] [address] * true * Date:? Generated for Suze anne/Alvino/eTransmitting on:?09/11/2024 03:08 PM EDT
== END 2024-09-11 15:02 | disposition home or self-care (01) ==
LOC: HO.HMCC 13:49
PROVIDERS: Visit Provider Nurse Practitioner Family
DX: E11.9 Type 2 diabetes mellitus without complications (principal); I48.19 Other persistent atrial fibrillation; Z62.819 Personal history of unspecified abuse in childhood; Z13.9 Encounter for screening, unspecified

== ENCOUNTER → 2024-09-11 13:48 | Outpatient (BNVA) | payer MEDICARE, SELFPAY | PROVIDERS: Visit Provider Nurse Practitioner Family | DX: E11.9 Type 2 diabetes mellitus without complications (principal); I48.19 Other persistent atrial fibrillation; Z62.819 Personal history of unspecified abuse in childhood | CPT/HCPCS: 83036; 96127; 99212 ==

== ENCOUNTER → 2024-10-01 14:49 | Outpatient (BNVA) | payer MEDICARE, SELFPAY | PROVIDERS: PCP Nurse Practitioner Family ==

== ENCOUNTER 2024-12-16 13:20 | Outpatient (REF) | payer MEDICARE, SELFPAY ==
--- OUTSIDE RECORDS SUMMARY | 2023-10-03 10:00 | XMS_ITS ---
Author Organization [facility] Address [address] [place] [address] Care Team Providers Care Floor Sander Name Role Phone Leon Zarco Unavailable [phone] Encounters Encounter Location Date Provider Diagnosis [facility] [address] [place] [address] 10/03/2023 Leon Zarco Plan Of Treatment No Information Progress Notes * Liset CHOWDHURY MDOB:1955 (69 yo F)Acc No.[id number]:10/03/2023 Progress Notes Patient: Liset SANTOS Provider: Srikanth Zarco DPM :1955 A ge:68 Y S ex:Female Date:10/03/2023 Address:[address], [place] Subjective: * Chief Complaints: * * Medical History: Objective: * Vitals: Assessment: Plan: * Treatment: * Images: * The named appointment provid er may or may not be the originator of this progress note, and it is not deemed complete until electronically signed by the appointment provider. Sign off status: Pending * Provider: Srikanth Zarco DPM Date: 10/03/2023 Generated for Suze anne/Alvino/Dorianitting on: 12/16/2024 01:31 PM EDT
[2024-12-16 13:40] LABS: MANUAL DIFF FLAG NO
[2024-12-16 14:55] LABS: Hematocrit 40.0 % (37.0-47.0); Hemoglobin 13.4 g/dl (12.0-16.0); Imm Gran Abs Auto 0.06 X10*3/uL (0.00-0.03); Imm Gran Pct Auto 0.5 % (0.0-0.4); Lymphocytes Absolute Auto 3.8 X10*3/uL (1.2-4.9); Mean Corpuscular HGB Conc 33.5 g/dl (31.0-35.0); Mean Corpuscular Hemoglobin 31.4 pg (27.0-33.0); Mean Corpuscular Volume 93.7 fL (80.0-98.0); NRBC Abs Auto 0.000 X10*3/uL (0.0-0.012); NRBC Pct Auto 0.0 /100WBC (0.0-0.2); Platelet Count 254 X10*3/uL (160-400); Red Blood Count 4.27 X10*6/uL (4.20-5.50); White Blood Count 11.8 X10*3/uL (4.8-10.8)
[2024-12-16 15:49] LABS: Alanine Aminotransferase 24 U/L (0-31); Albumin Level 4.2 g/dL (3.5-5.0); Alkaline Phosphatase 110 U/L (39-117); Anion Gap 14 (12-20); Aspartate Amino Transferase 25 U/L (5-31); Blood Urea Nitrogen 15 mg/dL (9-16); Calcium 8.7 mg/dL (8.4-10.2); Carbon Dioxide 27 mmol/L (22-29); Chloride 102 mmol/L (96-108); Cholesterol 283 mg/dL (<200); Estimated Glomerular Filt Rate > 60; HDL Cholesterol 42 mg/dL (>40); Potassium 4.1 mmol/L (3.3-5.1); Sodium 139 mmol/L (135-145); Total Protein 7.5 g/dL (6.5-8.0); Triglycerides 234 mg/dL (<150)
[2024-12-16 16:44] LABS: Digoxin 0.3 ng/mL (0.8-2.0)
== END 2024-12-16 13:21 | disposition home or self-care (01) ==
LOC: HO.LAB 13:20
PROVIDERS: Absent Provider Internal Medicine; PCP Nurse Practitioner Family; Visit Provider Nurse Practitioner Family
DX: I48.19 Other persistent atrial fibrillation (principal); E11.9 Type 2 diabetes mellitus without complications; Z51.81 Encounter for therapeutic drug level monitoring
CPT/HCPCS: 36415; 80053; 80061; 80162; 84443; 85025; 85027

== ENCOUNTER 2025-01-15 15:01 | Outpatient (AMB) | payer MEDICARE, SELFPAY ==
--- OUTSIDE RECORDS SUMMARY | 2023-10-03 10:00 | XMS_ITS ---
Author Organization [facility] Address [address] [place] [address] Care Team Providers Care Assembly Machine Tender Name Role Phone Leon Zarco Unavailable [phone] Encounters Encounter Location Date Provider Diagnosis [facility] [address] [place] [address] 10/03/2023 Leon Zarco Plan Of Treatment No Information Progress Notes * Liset CHOWDHURY MDOB:1955 (69 yo F)Acc No.[id number]:10/03/2023 Progress Notes Patient: Liset SANTOS Provider: Srikanth Zarco DPM :1955 A ge:68 Y S ex:Female Date:10/03/2023 Address:[address], [place] Subjective: * Chief Complaints: * * Medical History: Objective: * Vitals: Assessment: Plan: * Treatment: * Images: * The named appointment provid er may or may not be the originator of this progress note, and it is not deemed complete until electronically signed by the appointment provider. Sign off status: Pending * Provider: Srikanth Zarco DPM Date: 10/03/2023 Generated for Suze anne/Alvino/Dorianitting on: 01/15/2025 06:08 PM EDT
--- OUTSIDE RECORDS SUMMARY | 2024-01-30 10:00 | XMS_ITS ---
Author Organization [facility] Address [address] [place] [address] Care Team Providers Care Care Navigator Name Role Phone Leon Zarco Unavailable [phone] Encounters Encounter Location Date Provider Diagnosis [facility] [address] [place] [address] 01/30/2024 Leon Zarco Plan Of Treatment No Information Progress Notes * Liset CHOWDHURY MDOB:1955 (69 yo F)Acc No.[id number]:01/30/2024 Progress Notes Patient: Liset SANTOS Provider: Srikanth Zarco DPM :1955 A ge:68 Y S ex:Female Date:01/30/2024 Address:[address], [id number] Subjective: * Chief Complaints: * * Medical History: Objective: * Vitals: Assessment: Plan: * Treatment: * Images: * The named appointment provid er may or may not be the originator of this progress note, and it is not deemed complete until electronically signed by the appointment provider. Sign off status: Pending * Provider: Srikanth Zarco DPM Date: 01/30/2024 Generated for Suze anne/Alvino/Dorianitting on: 01/15/2025 06:08 PM EDT
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
[2025-01-15 15:12] VITALS: BP 126/76; PULSE 83; RESP 19; TEMP 37.2; O2SAT 95; BMI 49.8
--- OUTSIDE RECORDS SUMMARY | 2025-01-15 18:08 | XMS_ITS | Patient Health Record ---
Author Organization [facility] Address [address] [place] [address] Care Team Providers Care Senior Oracle Soa Developer Name Role Phone Leon Zarco Unavailable [phone] Reason For Referral No Information Encounters Encounter Location Date Provider Diagnosis [facility] [address] [place] [address] 01/19/2024 Leon Zarco Plan Of Treatment No Information Insurance Providers Payer Name Payer Address Payer Phone Subscriber Number Group Number Insured Name Patient Relationship to Insured Coverage Start Date Coverage End Date [id number] [address] [address] [place] [address] [id number] Liset Chowdhury Self - patient is the insured
== END 2025-01-15 17:38 | disposition home or self-care (01) ==
LOC: HO.HMCC 15:02
PROVIDERS: PCP Nurse Practitioner Primary Care; Visit Provider Nurse Practitioner Family
DX: D72.829 Elevated white blood cell count, unspecified (principal); F32.A Depression, unspecified; Z62.819 Personal history of unspecified abuse in childhood; E11.9 Type 2 diabetes mellitus without complications

== ENCOUNTER → 2025-01-15 15:01 | Outpatient (BNVA) | payer MEDICARE, SELFPAY | PROVIDERS: PCP Nurse Practitioner Primary Care; Visit Provider Nurse Practitioner Family | DX: E11.9 Type 2 diabetes mellitus without complications (principal); D72.829 Elevated white blood cell count, unspecified; F32.A Depression, unspecified; Z62.810 Personal history of physical and sexual abuse in childhood | CPT/HCPCS: 99212 ==

== ENCOUNTER 2025-01-17 14:44 | Outpatient (REF) | payer MEDICARE, SELFPAY ==
--- OUTSIDE RECORDS SUMMARY | 2023-10-03 10:00 | XMS_ITS ---
Author Organization [facility] Address [address] [place] [address] Care Team Providers Care Bell Tier Name Role Phone Leon Zarco Unavailable [phone] Encounters Encounter Location Date Provider Diagnosis [facility] [address] [place] [address] 10/03/2023 Leon Zarco Plan Of Treatment No Information Progress Notes * Liset CHOWDHURY MDOB:1955 (69 yo F)Acc No.[id number]:10/03/2023 Progress Notes Patient: Liset SANTOS Provider: Srikanth Zarco DPM :1955 A ge:68 Y S ex:Female Date:10/03/2023 Address:[address], [place] Subjective: * Chief Complaints: * * Medical History: Objective: * Vitals: Assessment: Plan: * Treatment: * Images: * The named appointment provid er may or may not be the originator of this progress note, and it is not deemed complete until electronically signed by the appointment provider. Sign off status: Pending * Provider: Srikanth Zarco DPM Date: 10/03/2023 Generated for Suze anne/Alvino/Dorianitting on: 01/17/2025 05:25 PM EDT
--- OUTSIDE RECORDS SUMMARY | 2024-01-30 10:00 | XMS_ITS ---
Author Organization [facility] Address [address] [place] [address] Care Team Providers Care Cd Reactor Operator Head Name Role Phone Leon Zarco Unavailable [phone] Encounters Encounter Location Date Provider Diagnosis [facility] [address] [place] [address] 01/30/2024 Leon Zarco Plan Of Treatment No Information Progress Notes * Liset CHOWDHURY MDOB:1955 (69 yo F)Acc No.[id number]:01/30/2024 Progress Notes Patient: Liset SANTOS Provider: Srikanth Zarco DPM :1955 A ge:68 Y S ex:Female Date:01/30/2024 Address:[address], [id number] Subjective: * Chief Complaints: * * Medical History: Objective: * Vitals: Assessment: Plan: * Treatment: * Images: * The named appointment provid er may or may not be the originator of this progress note, and it is not deemed complete until electronically signed by the appointment provider. Sign off status: Pending * Provider: Srikanth Zarco DPM Date: 01/30/2024 Generated for Suze anne/Alvino/Dorianitting on: 01/17/2025 05:26 PM EDT
[2025-01-17 14:59] LABS: MANUAL DIFF FLAG NO
[2025-01-17 15:25] LABS: Hematocrit 39.3 % (37.0-47.0); Hemoglobin 12.9 g/dl (12.0-16.0); Imm Gran Abs Auto 0.03 X10*3/uL (0.00-0.03); Imm Gran Pct Auto 0.3 % (0.0-0.4); Lymphocytes Absolute Auto 3.8 X10*3/uL (1.2-4.9); Mean Corpuscular HGB Conc 32.8 g/dl (31.0-35.0); Mean Corpuscular Hemoglobin 31.6 pg (27.0-33.0); Mean Corpuscular Volume 96.3 fL (80.0-98.0); NRBC Abs Auto 0.000 X10*3/uL (0.0-0.012); NRBC Pct Auto 0.0 /100WBC (0.0-0.2); Platelet Count 224 X10*3/uL (160-400); Red Blood Count 4.08 X10*6/uL (4.20-5.50); White Blood Count 11.1 X10*3/uL (4.8-10.8)
[2025-01-17 15:35] LABS: Appearance Urine Clear; Glucose Urine UA Negative (Negative); PH 5.5 (5.0-9.0); Specific Gravity - Urine 1.010 (1.005-1.025)
--- OUTSIDE RECORDS SUMMARY | 2025-01-17 17:26 | XMS_ITS | Patient Health Record ---
Author Organization [facility] Address [address] [place] [address] Care Team Providers Care Brush Machine Setter Name Role Phone Leon Zarco Unavailable [phone] Reason For Referral No Information Encounters Encounter Location Date Provider Diagnosis [facility] [address] [place] [address] 01/19/2024 Leon Zarco Plan Of Treatment No Information Insurance Providers Payer Name Payer Address Payer Phone Subscriber Number Group Number Insured Name Patient Relationship to Insured Coverage Start Date Coverage End Date [facility]-[id number] [address] [address] [place] [address] [id number] Liset Chowdhury Self - patient is the insured
== END 2025-01-17 14:45 | disposition home or self-care (01) ==
LOC: HO.LAB 14:44
PROVIDERS: PCP Nurse Practitioner Family; Visit Provider Nurse Practitioner Family
DX: E11.9 Type 2 diabetes mellitus without complications (principal); D72.829 Elevated white blood cell count, unspecified
CPT/HCPCS: 36415; 81003; 82043; 82570; 85025